=== PATIENT | female | born 1965 ===

== ENCOUNTER 2021-12-02 22:17 | Emergency (ER) | payer BC ==
[~2021-12-02] VITALS: Ht 160 cm; Wt 83.5 kg
[2021-12-02] MEDS ORDERED: DICLOFENAC SODI75 MG PO (23:50)
== END 2021-12-03 01:13 | disposition home or self-care (01) ==
LOC: ER 22:17
DX: M12.571 Traumatic arthropathy, right ankle and foot (principal); W18.30XA Fall on same level, unspecified, initial encounter; Y93.01 Activity, walking, marching and hiking; Y92.9 Unspecified place or not applicable; Y99.9 Unspecified external cause status